=== PATIENT | female | born 2000 | race Caucasian/White ===

== ENCOUNTER 2020-06-13 13:29 | Emergency (ER) | payer OTHER, SELFPAY ==
--- NOTE | ~2020-06-13 | XR_ITS ---
EXAMINATION: XR chest 2V EXAM DATE: 06/13/2020 14:18 INDICATION: Mid chest pain. Shortness of breath. TECHNIQUE: Frontal and lateral projections of the chest obtained and reviewed. Comparison is made to prior examination from 08/03/2015. FINDINGS: The lungs are clear. There are no pleural effusions. The cardiomediastinal silhouette is within normal limits. There is no pneumothorax suspected. The bones and soft tissues are unremarkab le. IMPRESSION: Normal chest x-ray exam. Reviewed, dictated and finalized at location B. IMPRESSION: Normal chest x-ray exam.
--- NOTE | ~2020-06-13 | CT_ITS ---
EXAMINATION: CTA chest PE protocol DATE: 06/13/2020 17:31 INDICATION: Chest pain TECHNIQUE: Computed tomography angiography (CTA) of the chest was performed with 100 mL Omnipaque-350 intravenous contrast timed to evaluate the pulmonary arteries. Coronal maximum intensity projection 3D-reconstructions were created by the technologist. The dose-length product (DLP) was 153.14 mGy-cm. Automated exposure control and iterative reconstruction technique were employed. COMPARISON: None. FINDINGS: The pulmonary arteries are well-opacified. No pulmonary embolism is identified. Evaluation of subsegmental peripheral pulmonary arteries in the lower lobes is limited by respiratory motion art ifact. The lungs are free of acute opacities. There is no pleural effusion or pneumothorax. No pathol ogically enlarged thoracic lymph nodes are identified. The heart size is normal. IMPRESSION: 1. No pulmonary embolism or acute cardiopulmonary abnormality. Reviewed, dictated and finalized at location A.
[2020-06-13 13:34] VITALS: BP 120/69; PULSE 93; RESP 18; TEMP 36.6; O2SAT 99
--- NOTE | 2020-06-13 13:46 | ECG_ITS ---
Measurements Intervals [place] Rate: 84 P: 7 DC: 154 QRS: 41 QRSD: 89 T: 53 QT: 378 QTc: 448 Interpretive Statements SINUS RHYTHM WITH SINUS ARRHYTHMIA NORMAL ECG Electronically Signed On 06-14-2020 10:54:07 CDT by Jean Carlos Leon D.O.
[2020-06-13 13:57] LABS: Basophils Percent Auto 0.5 % (0.2-1.2); Eosinophils Absolute Auto 0.1 K/mm3 (0-0.3); Eosinophils Percent Auto 2.4 % (0-4.4); Hematocrit 36.7 % (37.0-47.0); Hemoglobin 12.6 g/dL (12.0-15.0); Immature Granulocyte Absolute 0.01 K/mm3 (0.00-0.031); Immature Granulocyte Percent A 0.2 % (0-0.5); Lymphocytes Absolute Auto 2.04 K/mm3 (0.9-3.2); Lymphocytes Percent Auto 37.1 % (18.3-44.2); Mean Corpuscular HGB Conc 34.3 g/dl (32-36); Mean Corpuscular Hemoglobin 32.4 pg (26-34); Mean Corpuscular Volume 94.3 fl (80-100); Mean Platelet Volume 9.2 fl (7.4-10.4); Monocytes Absolute Auto 0.3 K/mm3 (0.1-0.6); Neutrophils Percent Auto 53.8 % (45.5-73.1); Platelet Count Result 260 k/mm3 (150-375); Red Blood Count 3.89 M/mm3 (4.2-5.4); Red Cell Distribution Width 12.6 % (11.5-14.5); White Blood Count 5.5 K/mm3 (4.5-10.0)
[2020-06-13 14:10] LABS: Alanine Aminotransferase 14 U/L (4-35); Albumin Level 4.6 g/dL (3.5-5.1); Alkaline Phosphatase 83 U/L (38-126); Anion Gap 7 mmol/L (8-16); Aspartate Amino Transferase 22 U/L (14-36); Bilirubin,Total 0.8 mg/dL (0.2-1.3); Blood Urea Nitrogen 13 mg/dL (7-17); Calcium 9.8 mg/dL (8.4-10.2); Carbon Dioxide 32 mmol/L (22-30); Chloride 101 mmol/L (98-107); D Dimer 0.68 ug/mL (<0.48); Estimated CRCL calculation 91 ml/min; Estimated Glomerular Filt Rate > 60; Glucose 115 mg/dL (65-105); Potassium 3.8 mmol/L (3.4-5.0); Sodium 140 mmol/L (137-145)
[2020-06-13 14:13] LABS: Atypical Lymphocytes Present; Platelet Estimate Adequate (Adequate)
[2020-06-13 14:21] LABS: Troponin I < 0.012 ng/mL (0.000-0.034)
[2020-06-13 14:38] LABS: Add Urine Microscopic? YES; Appearance Urine Clear (Clear); Bilirubin Urine Negative (Negative); Blood Urine 1+ (Negative); Color Urine Yellow (Yellow); Glucose Urine UA Negative (Negative); Ketones Urine Negative (Negative); Leukocyte Esterase Ur Negative LEU/UL (Negative); Mucus Urine Heavy /lpf; Nitrate Urine Negative (Negative); Protein Urine 1+ mg/dL (Negative); RBC Urine 0-2 /hpf (0-2); Specific Grav Ur 1.024 (1.001-1.035); Squamous Epithelial Cell Urine Moderate /hpf (Few); Urobilinogen Urine Negative mg/dL (<2.0); WBC Urine 0-3 /hpf
[2020-06-13 14:52] LABS: Barbiturate Screen Urine Negative (Negative); Benzodiazepines Screen Urine Positive (Negative)
[2020-06-13 14:58] LABS: Amphetamine Screen Urine Negative (Negative); Cannabinoid Screen Urine Negative (Negative); Cocaine Screen Urine Positive (Negative); Methadone Screen Urine Negative (Negative); Opiate Screen Urine Negative (Negative); Phencyclidine Screen Urine Negative (Negative)
[2020-06-13 15:20] VITALS: BP 127/83; PULSE 83; RESP 19; O2SAT 100
--- NOTE | 2020-06-13 15:20 | ED.CHESTPAIN ---
HPI - Chest Pain General Chief Complaint: Chest Pain <AMY Mccoy Last Filed: 06/13/20 18:52> Stated Complaint: sharp cp since yesterday <AMY Mccoy Last Filed: 06/13/20 18:52> Time Seen by Provider: 06/13/20 13:41 <AMY Mccoy Last Filed: 06/13/20 18:52> Source: patient <AMY Mccoy Last Filed: 06/13/20 18:52> Mode of arrival: ambulatory <AMY Mccoy Last Filed: 06/13/20 18:52> Limitations: no limitations <AMY Mccoy Filed: 06/13/20 18:52> History of Present Illness HPI narrative: Patient presents with chief complaint of intermittent diffuse chest discomfort that has been present for 2 to 3 weeks. Patient states that she had an increase of discomfort last night and this morning so that is why she presented to the emergency department. Patient admits that she uses cocaine and last used last night. Patient states that the pain worsens when she takes a deep breath. She denies any headache, syncope, fever, chills, cough. Patient denies history of PEs or DVTs. She denies being on any hormonal controls but that she does smoke cigarettes. <AMY Mccoy Last Filed: 06/13/20 18:52> Related Data Home Medications: Home Medications Medication Instructions Recorded Confirmed valacyclovir 06/13/20 <AMY Mccoy Last Filed: 06/13/20 18:52> Allergies/Adverse Reactions: Allergies Allergy/AdvReac Type Severity Reaction Status Date / Time codeine AdvReac Mild VOMITS Verified 06/13/20 13:38 HYDROCODONE BIT AdvReac Unknown Gastrointestinal Uncoded 06/13/20 13:38 Upset <AMY Mccoy Last Filed: 06/13/20 18:52> Review of Systems Review of Systems: Narrative: CONSTITUTIONAL: Denies fever, chills, or sweats. EYES: Denies visual changes, redness, or discharge. ENT: Denies rhinorrhea, congestion, sore throat, or otalgia. CARDIOVASCULAR: Denies chest pain, palpitations, or edema. RESPIRATORY: reports diffuse burning sensation with breathing Denies cough or dyspnea. GASTROINTESTINAL: Denies abdominal pain, nausea, vomiting, or diarrhea. GENITOURINARY: Denies dysuria or hematuria. SKIN: Denies rash or itching. MUSCULOSKELETAL: Denies back pain, myalgia, or joint pain NEUROLOGIC: Denies headache, numbness, dizziness, or weakness. PSYCHIATRIC: Denies anxiety or depression. <Cesar Reis PA-C - Last Filed: 06/13/20 18:52> [facility] Social History Social History: Social History (Updated 09/25/19 @ 16:58 by Neo Patterson PA-C) Smoking status: Current every day smoker Alcohol intake: current Gender identity (if verbalized by the patient): Female <Cesar Reis PA-C - Last Filed: 06/13/20 18:52> Exam Narrative: Exam Narrative: GENERAL: Well-appearing, well-nourished. HEAD: Normocephalic, atraumatic. EYES: PERRLA and EOMI. ENT: Nares clear, no rhinorrhea or epistaxis. Mucous membranes moist. Oropharynx without tonsillar hypertrophy exudate or other lesions. Bilateral TMs pearly olvera nonbulging NECK: Supple. No adenopathy or masses. No vertebral tenderness or loss of ROM. CHEST: Clear to auscultation. No respiratory distress. No wheezes rales or rhonchi. No tachypnea or gasping. Speaking in full sentences without distress. Some of chest discomfort reilicited with palpation of chest wall. HEART: Regular rate and rhythm. Normal peripheral pulses. ABDOMEN: Soft, nontender, nondistended, normal active bowel sounds. No bruises noted. EXTREMITIES: No acute changes in ROM. No edema. No calf pain or swelling. SKIN: Warm, dry, no rash. NEURO: No focal deficits. Alert and oriented x3. PSYCH: Normal mood and affect. <Cesar Reis PA-C - Last Filed: 06/13/20 18:52> Course Vital Signs Vital signs: Vital Signs Temperature 97.8 F 06/13/20 13:34 Pulse Rate 93 06/13/20 13:34 Respiratory Rate 18 06/13/20 13:34 Blood Pressure 120/69
[2020-06-13 16:26] LABS: Beta HCG Quantitative 6.94 mIU/ML
[2020-06-13 17:20] LABS: Troponin I < 0.012 ng/mL (0.000-0.034)
[2020-06-13] MEDS: KETOROLAC 30 MG/ML VIAL (*BKC) IV PUSH (19:11)
== END 2020-06-13 18:58 | disposition home or self-care (01) ==
PROVIDERS: Physician Assistant; Emergency Provider General Practice
DX: R09.1 Pleurisy (principal); F17.210 Nicotine dependence, cigarettes, uncomplicated
CPT/HCPCS: 36415; 71046; 71275; 80053; 80307; 81001; 81025; 84484; 84702; 85025; 85380; 93005; 96365; 96375; 99284; J0131; J1885; Q9967

== ENCOUNTER 2020-08-09 11:02 | Emergency (ER) | payer OTHER, SELFPAY ==
--- NOTE | ~2020-08-09 | XR_ITS ---
EXAMINATION: XR abdomen/kub 1V EXAM DATE: 08/09/2020 11:19 INDICATION: abd. pain /constipation/bloating . TECHNIQUE: Frontal projection(s) of the abdomen for interpretation. There is no prior study for sendy mike. FINDINGS: There is expected amount of colonic stool and gas. No small bowel dilation, nonobstructiv e bowel gas pattern. There are no suspicious calcifications identified. There is no organomegaly suspected. The bones are unremarkable. IMPRESSION: Unremarkable abdomen x-ray exam. Reviewed, dictated and finalized at location A. ATRY DOCTOR
[2020-08-09 11:09] VITALS: BP 134/99; PULSE 74; RESP 20; TEMP 36.6; O2SAT 100
--- NOTE | 2020-08-09 12:00 | ED.GENADULT ---
HPI - General Adult General Chief complaint: Abdominal Pain Stated complaint: abdominal pain/constipated/bloating Source: patient Mode of arrival: ambulatory Limitations: no limitations History of Present Illness HPI narrative: Patient is a 19-year-old female who presents complaining of abdominal pain and bloating x2 weeks. She reports pressure and fullness to abdomen. She reports miscarriage in late May. She reports her having beta quant checked last week and was finally back to normal. She reports little to no bowel movement over the past 2 weeks. She reports small liquid stools. She denies nausea or vomiting. She reports taking MiraLAX yesterday without relief. She also reports increasing fluid intake without relief as well. MD complaint: Abdominal pain Related Data Home Medications Medication Instructions Recorded Confirmed valacyclovir 1,000 mg PO DAILY 06/13/20 Allergies Allergy/AdvReac Type Severity Reaction Status Date / Time codeine AdvReac Mild VOMITS Verified 08/09/20 11:33 HYDROCODONE BIT AdvReac Unknown Gastrointestinal Uncoded 08/09/20 11:33 Upset Review of Systems Review of Systems: Narrative: CONSTITUTIONAL: Denies fever, chills, or sweats. EYES: Denies visual changes, redness, or discharge. ENT: Denies rhinorrhea, congestion, sore throat, or otalgia. CARDIOVASCULAR: Denies chest pain, palpitations, or edema. RESPIRATORY: Denies cough or dyspnea. GASTROINTESTINAL: Abdominal pain, constipation, bloating. GENITOURINARY: Denies dysuria or hematuria. SKIN: Denies rash or itching. MUSCULOSKELETAL: Denies back pain, joint pain, or myalgia. NEUROLOGIC: Denies headache, numbness, dizziness, or weakness. PSYCHIATRIC: Denies anxiety or depression. [facility] Past Medical History Medical History (Updated 08/09/20 @ 12:06 by ALISHA Dos Santos) Miscarriage within last 12 months Surgical History Surgical History (Updated 08/09/20 @ 12:03 by ALISHA Dos Santos) No significant past surgical history Family History Family History (Updated 08/09/20 @ 12:04 by ALISHA Dos Santos) Other No significant family history Social History Social History Smoking status: Current every day smoker Alcohol intake: current Gender identity (if verbalized by the patient): Female Exam Narrative: Exam Narrative: GENERAL: Well-appearing, well-nourished, and in no acute distress. HEAD: Normocephalic, atraumatic. EYES: EOMI. No redness or drainage. Conjunctiva are normal. ENT: Mucous membranes pink and moist. CHEST: No respiratory distress. HEART: Regular rate and rhythm. GI: Firm and distended. Bowel sounds normal in all quadrants. MUSCULOSKELETAL: No bony tenderness. EXTREMITIES: Normal range of motion. No edema. SKIN: Warm, dry, no rash. NEURO: No focal deficits. Alert and oriented x3. Gait steady. PSYCH: Normal affect. No signs of depression or anxiety. Course Vital Signs Vital signs: Vital Signs Temperature 36.6 C 08/09/20 11:09 Pulse Rate 74 08/09/20 11:09 Respiratory Rate 20 08/09/20 11:09 Blood Pressure 134/99 H 08/09/20 11:09 Pulse Oximetry 100 08/09/20 11:09 Temperature 36.6 C 08/09/20 11:09 Pulse Rate 74 08/09/20 11:09 Respiratory Rate 20 08/09/20 11:09 Blood Pressure 134/99 H 08/09/20 11:09 Pulse Oximetry 100 08/09/20 11:09 Reviewed. Patient has been instructed to follow-up with her PCP regarding her blood pressure. Transfer Transfered to: Ernest Transfer rationale: Higher level care Accepting physician: Dr. Horta Transfer comments: Patient to be transferred by private vehicle. Patient is stable for transfer. Medical Decision Making MDM Narrative Medical decision making narrative: Patient's x-ray shows no abnormality. Discussed with patient the need for further diagnostic testing because of symptoms. Patient to go to the emergency department at this time. Hari
== END 2020-08-09 11:50 | disposition short-term general hospital (02) ==
PROVIDERS: Emergency Provider Nurse Practitioner
DX: R10.84 Generalized abdominal pain (principal); F17.200 Nicotine dependence, unspecified, uncomplicated
CPT/HCPCS: 74018; 99213; G0463

== ENCOUNTER 2020-08-09 12:03 | Emergency (ER) | payer OTHER, SELFPAY ==
--- NOTE | ~2020-08-09 | CT_ITS ---
EXAMINATION: CT abdomen pelvis wo con DATE: 08/09/2020 13:21 INDICATION: Abdomen pain. TECHNIQUE: Computed tomography (CT) of the abdomen and pelvis was performed without intravenous contr ast. The dose-length product was 292.93 mGy-cm. Automated exposure control and iterative reconstructi on technique were employed. COMPARISON: None. FINDINGS: Lung bases are unremarkable. Heart size normal. No significant pleural or pericardial effus ion. The liver, spleen, pancreas, adrenal glands and kidneys are unremarkable. Gallbladder is present . No renal/ureteral stones or hydronephrosis. Nonobstructive bowel gas pattern. There are mildly enla rged inguinal lymph nodes, likely reactive. No significant vascular abnormality. No free air or free fluid. Appendix is unremarkable. No acute osseous abnormality. IMPRESSION: 1. No acute abdominal abnormality. Reviewed, dictated and finalized at location B. ER HELPER
[2020-08-09 12:06] VITALS: BP 124/87; PULSE 59; RESP 16; O2SAT 100
[2020-08-09 12:31] LABS: Basophils Percent Auto 0.6 % (0.2-1.2); Eosinophils Absolute Auto 0.1 K/mm3 (0-0.3); Eosinophils Percent Auto 1.1 % (0-4.4); Hematocrit 37.6 % (37.0-47.0); Hemoglobin 13.3 g/dL (12.0-15.0); Immature Granulocyte Absolute 0.01 K/mm3 (0.00-0.031); Immature Granulocyte Percent A 0.2 % (0-0.5); Lymphocytes Absolute Auto 1.82 K/mm3 (0.9-3.2); Lymphocytes Percent Auto 34.5 % (18.3-44.2); Mean Corpuscular HGB Conc 35.4 g/dl (32-36); Mean Corpuscular Hemoglobin 33.9 pg (26-34); Mean Corpuscular Volume 95.9 fl (80-100); Mean Platelet Volume 9.6 fl (7.4-10.4); Monocytes Absolute Auto 0.6 K/mm3 (0.1-0.6); Monocytes Percent Auto 10.6 % (2.6-8.5); Neutrophils Absolute Auto 2.8 K/mm3 (1.3-6.7); Platelet Count Result 250 k/mm3 (150-375); Red Blood Count 3.92 M/mm3 (4.2-5.4); Red Cell Distribution Width 11.6 % (11.5-14.5); White Blood Count 5.3 K/mm3 (4.5-10.0)
[2020-08-09 12:43] LABS: Alanine Aminotransferase 40 U/L (4-35); Albumin Level 4.6 g/dL (3.5-5.1); Alkaline Phosphatase 89 U/L (38-126); Anion Gap 6 mmol/L (8-16); Aspartate Amino Transferase 35 U/L (14-36); Bilirubin,Total 0.6 mg/dL (0.2-1.3); Blood Urea Nitrogen 12 mg/dL (7-17); Calcium 9.4 mg/dL (8.4-10.2); Carbon Dioxide 29 mmol/L (22-30); Chloride 100 mmol/L (98-107); Estimated CRCL calculation 91 ml/min; Estimated Glomerular Filt Rate > 60; Glucose 90 mg/dL (65-105); Lipase 26 U/L (23-300); Potassium 3.7 mmol/L (3.4-5.0); Sodium 135 mmol/L (137-145)
[2020-08-09 12:50] LABS: Add Urine Microscopic? YES; Appearance Urine Clear (Clear); Bilirubin Urine Negative (Negative); Blood Urine Negative (Negative); Color Urine Yellow (Yellow); Glucose Urine UA Negative (Negative); Ketones Urine 1+ mg/dL (Negative); Leukocyte Esterase Ur Negative LEU/UL (Negative); Mucus Urine Heavy /lpf; Nitrate Urine Negative (Negative); Protein Urine Negative (Negative); RBC Urine 0-2 /hpf (0-2); Specific Grav Ur 1.025 (1.001-1.035); Squamous Epithelial Cell Urine Many /hpf (Few); Transitional Epi Cells Urine Rare /hpf (None Seen); WBC Urine 0-3 /hpf
--- NOTE | 2020-08-09 13:11 | ED.ABDPAIN ---
HPI - Abdominal Pain General Chief Complaint: Abdominal Pain Stated Complaint: abd pain/bloating Time Seen by Provider: 08/09/20 13:09 Source: patient Mode of arrival: ambulatory Limitations: no limitations History of Present Illness HPI narrative: Patient is 19 old female complaining of constipation and lower abdominal pain, abdominal, cramping, 6 out of 10, nonradiating started approximately 3 weeks ago. Patient denies any nausea vomiting diarrhea or fever. Patient denies any urinary symptoms. Related Data Home Medications Medication Instructions Recorded Confirmed valacyclovir 1,000 mg PO DAILY 06/13/20 Allergies Allergy/AdvReac Type Severity Reaction Status Date / Time codeine AdvReac Mild VOMITS Verified 08/09/20 12:47 HYDROCODONE BIT AdvReac Unknown Gastrointestinal Uncoded 08/09/20 11:33 Upset Review of Systems Review of Systems: All systems reviewed & are unremarkable except as noted in HPI and below Constitutional: Constitutional: Denies body ache(s), Denies chills, Denies excessive sweating, Denies fatigue, Denies fever(s), Denies headache(s), Denies lethargy, Denies malaise, Denies weakness and Denies weight loss Eyes: Eyes: Denies blurry vision, Denies change in vision and Denies loss of vision ENT: Denies dizziness, Denies ear discharge, Denies headache(s), Denies lip swelling, Denies epistaxis, Denies nasal congestion, Denies neck pain, Denies throat swelling and Denies tongue swelling Cardiovascular: Cardiovascular: Denies chest pain, Denies chest pain at rest, Denies chest pain with activity, Denies diaphoresis, Denies rapid heart rate, Denies edema, Denies irregular heart rhythm, Denies lightheadedness, Denies palpitations, Denies dyspnea and Denies dyspnea on exertion Respiratory: Respiratory: Denies chest congestion, Denies cough, Denies hemoptysis, Denies dyspnea and Denies dyspnea on exertion Gastrointestinal: Gastrointestinal: Denies melena, Denies hematochezia, Denies diarrhea, Denies nausea, Denies vomiting and Denies hematemesis Musculoskeletal: Musculoskeletal: Denies abnormal gait, Denies deformity, Denies joint swelling, Denies limited range of motion, Denies neck pain and Denies numbness Neurologic: Denies Abnormal speech present, Denies abnormal gait, Denies confusion, Denies dizziness, Denies headache(s), Denies focal weakness, Denies loss of vision, Denies numbness, Denies Other visual disturbances, Denies Sensory deficit (Neuro) and Denies weakness Psychiatric: Psychiatric: Denies confusion, Denies depression, Denies auditory hallucinations, Denies homicidal ideation and Denies suicidal ideation Endocrine: Endocrine: Denies cold intolerance, Denies excessive sweating, Denies fatigue, Denies heat intolerance and Denies palpitations Hematologic/Lymphatic: Hematologic/Lymphatic: Denies easy bleeding and Denies easy bruising Allergic/Immunologic: Allergic/Immunologic: Denies lip swelling, Denies throat swelling and Denies tongue swelling PMFSH Past Medical History Medical History (Updated 08/09/20 @ 16:16 by Dillon Curiel MD) Miscarriage within last 12 months Surgical History Surgical History (Updated 08/09/20 @ 12:03 by ALISHA Dos Santos) No significant past surgical history Family History Family History (Updated 08/09/20 @ 12:04 by ALISHA Dos Santos) Other No significant family history Social History Social History Smoking status: Current every day smoker Alcohol intake: current Gender identity (if verbalized by the patient): Female Exam Const: General: cooperative, healthy appearing, comfortable, no acute distress, well developed, alert and awake; No confusion Orientation/consciousness: oriented to person, oriented to place, oriented to time, patient oriented x3 and No confusion Limitations: no limitations HENMT: Head: normal to inspection, normocephalic and atraumatic Ears: heari
[2020-08-09] MEDS: SODIUM CHLORIDE 0.9% IV 1,000 ML 999 ML IV CONT (13:31)
[2020-08-09 16:05] VITALS: BP 136/84; PULSE 84; RESP 16; O2SAT 98
== END 2020-08-09 16:20 | disposition home or self-care (01) ==
PROVIDERS: Emergency Medicine; Emergency Provider Emergency Medicine
DX: K52.9 Noninfective gastroenteritis and colitis, unspecified (principal); F17.200 Nicotine dependence, unspecified, uncomplicated
CPT/HCPCS: 36415; 74018; 74176; 80053; 81001; 81025; 83690; 85025; 99284; J7030

== ENCOUNTER 2020-08-14 11:15 | Emergency (ER) | payer OTHER, SELFPAY ==
--- NOTE | 2020-08-14 11:20 | ED.URI ---
HPI - URI/Sore Throat General Chief Complaint: Upper Respiratory Infection Stated Complaint: sore throat/clogged ears Time Seen by Provider: 08/14/20 11:30 Source: patient and RN notes reviewed Mode of arrival: ambulatory Limitations: no limitations History of Present Illness HPI Narrative: 19-year-old female presents with concern for approximately 2-week history of ear pain, sore throat, rhinorrhea, postnasal drainage. Reports she has been taking ibuprofen, denies any other medicines for her symptoms. She denies cough, shortness of breath, fever, chills, body aches, sweats. Denies any known sick contacts. MD elicited complaint: sore throat Related Data Home Medications Medication Instructions Recorded Confirmed valacyclovir 1,000 mg PO DAILY 06/13/20 Allergies Allergy/AdvReac Type Severity Reaction Status Date / Time codeine AdvReac Mild VOMITS Verified 08/09/20 12:47 HYDROCODONE BIT AdvReac Unknown Gastrointestinal Uncoded 08/09/20 11:33 Upset Review of Systems Review of Systems: Narrative: CONSTITUTIONAL: Denies malaise, chills, sweats, or fever. EYES: Denies visual changes, redness, or discharge. ENT: Reports rhinorrhea, sore throat, bilateral ear fullness. Denies congestion, sinus pain CARDIOVASCULAR: Denies chest pain, palpitations, or edema. RESPIRATORY: Denies cough or dyspnea. GASTROINTESTINAL: Denies abdominal pain, nausea, vomiting, diarrhea SKIN: Denies rash or itching. MUSCULOSKELETAL: Denies myalgia. NEUROLOGIC: Denies headache. All systems reviewed & are unremarkable except as noted in HPI and below PMFSH Past Medical History Medical History (Updated 08/14/20 @ 11:39 by Melanie Jc NP) Miscarriage within last 12 months Surgical History Surgical History (Updated 08/09/20 @ 12:03 by ALISHA Dos Santos) No significant past surgical history Family History Family History (Updated 08/09/20 @ 12:04 by ALISHA Dos Santos) Other No significant family history Social History Social History Smoking status: Current every day smoker Alcohol intake: current Gender identity (if verbalized by the patient): Female Comments At time of signature, agree with nursing past medical, surgical, social and family history. There is no relevant family history pertinent to the presenting complaint Exam Narrative: Exam Narrative: GENERAL: Well-appearing, well-nourished, and in no acute distress. HEAD: Normocephalic EYES: PERRLA, conjunctivae clear ENT: Nares clear, turbinates erythematous, clear discharge. Mucous membranes moist. TM pearly olvera with dull light reflex bilaterally; no tragal tenderness. Oropharynx not erythematous without lesions. Tonsils not enlarged and without exudate, no drooling, no hoarseness, no trismus, uvula midline. NECK: Supple. No lymphadenopathy CHEST: Clear to auscultation, breath sounds equal. No wheezing, rhonchi, rales, or stridor. No respiratory distress, speaks in full sentences. HEART: Regular rate and rhythm. No murmur heard. SKIN: Warm, dry, no rash. NEURO: Alert and oriented x3. PSYCH: Normal mood and affect Course Course Emergency Course: Patient is aware of diagnosis, understands and agrees to treatment plan. Anticipatory guidance given. Patient agrees to follow-up as directed and is aware of reasons to seek care at the emergency department. Portions of this record may have been created with voice recognition software Vital Signs Vital signs: Vital Signs Temperature 97.7 F 08/14/20 11:21 Pulse Rate 72 08/14/20 11:21 Respiratory Rate 16 08/14/20 11:21 Blood Pressure 119/73 08/14/20 11:21 Pulse Oximetry 100 08/14/20 11:21 Temperature 97.7 F 08/14/20 11:21 Pulse Rate 72 08/14/20 11:21 Respiratory Rate 16 08/14/20 11:21 Blood Pressure 119/73 08/14/20 11:21 Pulse Oximetry 100 08/14/20 11:21 Reviewed. MDM - URI/Sore Throat MDM Narrative Medical dec
[2020-08-14 11:21] VITALS: BP 119/73; PULSE 72; RESP 16; TEMP 36.5; O2SAT 100
== END 2020-08-14 11:46 | disposition home or self-care (01) ==
PROVIDERS: Emergency Provider Nurse Practitioner
DX: J06.9 Acute upper respiratory infection, unspecified (principal); F17.200 Nicotine dependence, unspecified, uncomplicated
CPT/HCPCS: 87081; 87880; 99213; G0463

== ENCOUNTER 2021-03-26 22:34 | Emergency (ER) | payer OTHER, SELFPAY ==
--- NOTE | ~2021-03-26 | XR_ITS ---
EXAMINATION: XR chest 1V portable EXAM DATE: 03/26/2021 23:45 INDICATION: Vomiting rule out aspiration . TECHNIQUE: Frontal and lateral projections of the chest obtained and reviewed. Comparison is made to prior examination from 06/13/2020. FINDINGS: The lungs are clear. There are no pleural effusions. The cardiomediastinal silhouette is within normal limits. There is no pneumothorax suspected. The bones and soft tissues are unremarkab le. IMPRESSION: No acute cardiopulmonary findings. Reviewed, dictated and finalized at location G.
--- NOTE | ~2021-03-26 | CT_ITS ---
EXAMINATION: CT cervical spine wo con, CT brain wo con EXAM DATE: 03/26/2021 23:28 INDICATION: Fall, head injury. TECHNIQUE: Spiral CT of the head was performed without contrast. Axial, coronal and sagittal images were reviewed. Spiral CT of the cervical spine was performed without contrast. Axial images were rev iewed. Coronal and sagittal reformatted images were also reviewed. The dose-length product (DLP) fo r this examination was 605.33 mGy-cm. The exposure was tailored according to patient size, and itera tive reconstruction (ASIR) was used as additional dose reduction technique. There is no prior study for comparison. FINDINGS: HEAD CT: There is no acute intraparenchymal hemorrhage. No evidence of intraparenchymal brain mass lesion. No evidence of acute infarction. There is no mass effect or midline shift. There is no obstr uctive hydrocephalus suspected. There are no extra-axial collections. There are no acute calvarial fractures. The orbits are unremarkable. Soft tissue is unremarkable. Mild ethmoid mucoperiosteal t hickening. CERVICAL CT: There is no evidence of acute cervical fracture. The odontoid process is intact. Pre- dens space is normal. Prevertebral soft tissue is normal. There are no soft tissue abnormalities id entified. There is no disc space widening or traumatic vertebral body subluxation suspected. Verteb ral body and disc heights are well-maintained. Minimal cervical arthropathy. IMPRESSION: No acute intracranial findings or cervical fracture. Reviewed, dictated and finalized at location . IMPRESSION: No acute intracranial findings or cervical fracture.
[2021-03-26 22:41] VITALS: BP 104/79; PULSE 65; RESP 18; O2SAT 100
[2021-03-26] MEDS: LACTATED RINGERS 1,000 ML 999 ML IV CONT (22:58)
--- NOTE | 2021-03-26 23:00 | PC.NURSE ---
Marine RN spoke w/ mother Altagracia on phone regarding pt status. Given number to call when pt is discharged.
[2021-03-26] MEDS: THIAMINE HCL 200 MG/2 ML VIAL IV PUSH (23:02)
[2021-03-26] MEDS: HALOPERIDOL LACTATE 5 MG/ML VIAL 10 MG IV PUSH (23:03)
[2021-03-26 23:10] LABS: Glucose Point of Care 103 mg/dl (65-105)
[2021-03-26 23:11] LABS: Basophils Percent Auto 0.6 % (0.2-1.2); Eosinophils Absolute Auto 0.1 K/mm3 (0-0.3); Eosinophils Percent Auto 1.2 % (0-4.4); Hematocrit 36.3 % (37.0-47.0); Hemoglobin 12.5 g/dL (12.0-15.0); Immature Granulocyte Absolute 0.02 K/mm3 (0.00-0.031); Immature Granulocyte Percent A 0.3 % (0-0.5); Lymphocytes Absolute Auto 2.88 K/mm3 (0.9-3.2); Lymphocytes Percent Auto 43.4 % (18.3-44.2); Mean Corpuscular HGB Conc 34.4 g/dl (32-36); Mean Corpuscular Hemoglobin 34.8 pg (26-34); Mean Corpuscular Volume 101.1 fl (80-100); Mean Platelet Volume 9.6 fl (7.4-10.4); Monocytes Absolute Auto 0.4 K/mm3 (0.1-0.6); Monocytes Percent Auto 6.6 % (2.6-8.5); Neutrophils Absolute Auto 3.2 K/mm3 (1.3-6.7); Neutrophils Percent Auto 47.9 % (45.5-73.1); Platelet Count Result 261 k/mm3 (150-375); Red Blood Count 3.59 M/mm3 (4.2-5.4); Red Cell Distribution Width 12.1 % (11.5-14.5); White Blood Count 6.6 K/mm3 (4.5-10.0)
[2021-03-26 23:12] VITALS: BP 104/79; PULSE 75; RESP 17; O2SAT 100
--- NOTE | 2021-03-26 23:12 | PC.NURSE ---
Pt to CT scan via stretcher at this time.
[2021-03-26 23:20] LABS: Anion Gap 11 mmol/L (8-16); Blood Urea Nitrogen 9 mg/dL (7-17); Calcium 8.5 mg/dL (8.4-10.2); Carbon Dioxide 25 mmol/L (22-30); Chloride 108 mmol/L (98-107); Estimated CRCL calculation 86 ml/min; Estimated Glomerular Filt Rate > 60; Glucose 100 mg/dL (65-110); Potassium 3.3 mmol/L (3.4-5.0); Sodium 144 mmol/L (137-145)
[2021-03-26 23:31] LABS: Ethanol 327 mg/dL (<10)
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
[2021-03-26 23:33] LABS: Amphetamine Screen Urine Negative (Negative); Barbiturate Screen Urine Negative (Negative); Benzodiazepines Screen Urine Negative (Negative); Cannabinoid Screen Urine Negative (Negative); Cocaine Screen Urine Negative (Negative); Methadone Screen Urine Negative (Negative); Opiate Screen Urine Negative (Negative); Phencyclidine Screen Urine Negative (Negative)
[2021-03-27] VITALS (7 sets, daily range): BP systolic 92–124; BP diastolic 44–83; PULSE 65–87; RESP 12–18; O2SAT 97–100
[2021-03-27] MEDS: KCL 20 MEQ/SW 100 ML 100 ML 50 MEQ IVPB (00:28)
--- NOTE | 2021-03-27 01:25 | PC.NURSE ---
C Collar removed per EDP FREDI Mann.
[2021-03-27] MEDS: POTASSIUM CHLORIDE 20 MEQ TABLET 40 MEQ PO (05:25)
== END 2021-03-27 05:32 | disposition home or self-care (01) ==
PROVIDERS: Emergency Provider Emergency Medicine
DX: F10.120 Alcohol abuse with intoxication, uncomplicated (principal); Y90.8 Blood alcohol level of 240 mg/100 ml or more; W07.XXXA Fall from chair, initial encounter
CPT/HCPCS: 36415; 70450; 71045; 72125; 80048; 80307; 81025; 82948; 85025; 96361; 96365; 96374; 96375; 99284; A9270; J1630; J3411; J3480; J7120; L0140

== ENCOUNTER 2023-08-24 13:48 | Outpatient (CLI) | payer OTHER, SELFPAY ==
--- NOTE | ~2023-08-24 | US_ITS ---
EXAMINATION: US OB follow up DATE: 08/24/2023 14:43 INDICATION: Fundal height high for dates. Third trimester. TECHNIQUE: Real-time ultrasound of the pelvis was performed. COMPARISON: None. FINDINGS: There is a single living fetus in vertex presentation. The placenta is anterior. heart rate is 148 beats per minute (bpm). The amniotic fluid index is 16.2 cm, which is normal. The following biometric data were obtained: Biparietal diameter (BPD): 9.4 cm; head circumference (HC): 33.7 cm; abdominal circumference (AC): 34 .3 cm; femur length (FL): 7.5 cm. These measurements are concordant. Estimated weight is 3467 g +/- 520 g, which correlates with the 63rd percentile when 09/04/23 i s used as estimated date of delivery. As single measurements, these parameters are each equal to the following estimated gestational ages: BPD: 38 weeks 3 days. HC: 38 weeks 4 days. AC: 38 weeks 2 days. FL: 38 weeks 3 days. estimated gestational age based solely on measurements from this exam is 38 weeks 3 days +/- 2 weeks 5 days. IMPRESSION: 1. Single living fetus in vertex presentation. 2. Estimated weight is 3467 g +/- 520 g, which correlates with the 63rd percentile when is used as estimated date of delivery. Reviewed, dictated and finalized at location E. [facility] IMPRESSION: 1. Single living fetus in vertex presentation. 2. Estimated weight is 3467 g +/- 520 g, which correlates with the 63rd percentile when 09/04/23 is used as estimated date of delivery.
== END 2023-08-24 13:49 | disposition home or self-care (01) ==
PROVIDERS: Visit Provider Nurse Practitioner Family
DX: O34.599 Maternal care for other abnormalities of gravid uterus, unspecified trimester (principal); Z3A.00 Weeks of gestation of pregnancy not specified
CPT/HCPCS: 76816